=== PATIENT | male | born 1960 | race Caucasian/White ===

== ENCOUNTER 2016-08-13 09:26 | Outpatient (CLI) | payer OTHER ==
[~2016-08-13 09:26] MED LIST: ASPIRIN81 M1 PO; CYCLOBENZAPRINE10 M7 PO; LOPRESSOR50 MG PO; VASOTEC5 MG PO
== END 2016-08-13 20:53 | disposition home or self-care (01) ==
LOC: MLB 09:26
PROVIDERS: ATTEND Internal Medicine Geriatric Medicine
DX: I10 Essential (primary) hypertension (principal); I25.10 Atherosclerotic heart disease of native coronary artery without angina pectoris; E78.5 Hyperlipidemia, unspecified; I50.9 Heart failure, unspecified

== ENCOUNTER 2016-09-17 13:09 | Outpatient (CLI) | payer OTHER | END 2016-09-17 20:22 | disposition home or self-care (01) | LOC: MRD 13:09 | PROVIDERS: ATTEND Internal Medicine Geriatric Medicine | DX: M25.562 Pain in left knee (principal) ==

== ENCOUNTER 2017-02-03 09:30 | Outpatient (CLI) | payer OTHER ==
[~2017-02-03 09:30] MED LIST changes: -ASPIRIN81 M1 PO; -CYCLOBENZAPRINE10 M7 PO; -LOPRESSOR50 MG PO; +METO-50 PO; +VAS5 PO; -VASOTEC5 MG PO
[2017-02-03 10:03] LABS: BASOPHILS # (AUTO) 0.1 K/uL (0.00-0.22); BASOPHILS % (AUTO) 0.7 % (0.0-2.0); EOSINOPHILS # (AUTO) 0.1 K/uL (0-0.4); EOSINOPHILS % (AUTO) 1.6 % (0.0-4.0); HEMATOCRIT 43.5 % (36-52); HEMOGLOBIN 14.6 g/dL (12.0-18.0); LYMPHOCYTES # (AUTO) 1.8 K/uL (2.0-11.5); LYMPHOCYTES % (AUTO) 23.8 % (20.5-51.1); MEAN CORPUSCULAR HEMOGLOBIN 32 pg (27-31); MEAN CORPUSCULAR HGB CONC 34 g/dL (33-37); MEAN CORPUSCULAR VOLUME 96 fL (80-94); MONOCYTES # (AUTO) 0.2 K/uL (0.8-1.0); MONOCYTES % (AUTO) 3.2 % (1.7-9.3); NEUTROPHILS # (AUTO) 5.4 K/uL (1.8-7.7); NEUTROPHILS % (AUTO) 70.7 % (42.2-75.2); PLATELET COUNT (AUTO) 291 K/uL (140-450); RED BLOOD CELL COUNT(AUTO) 4.53 MIL/uL (4.20-6.10); RED CELL DISTRIBUTION WIDTH 11.4 % (11.6-13.7); WHITE BLOOD COUNT (AUTO) 7.6 K/uL (4.8-10.8)
[2017-02-03 10:23] LABS: ANION GAP 12.1 (8-16); CARBON DIOXIDE 29.2 mmol/L (21-32); CREATININE 1.1 mg/dL (0.7-1.3); POTASSIUM 4.3 mmol/L (3.5-5.1)
[2017-02-03 10:29] LABS: ALBUMIN 3.9 g/dL (3.4-5.0); CHOL/HDL RATIO 7.1 (1-4.5)
[2017-02-03 10:50] LABS: THYROID STIMULATING HORMONE 1.17 uIU/mL (0.34-3.74)
== END 2017-02-03 20:56 | disposition home or self-care (01) ==
LOC: MLB 09:30
PROVIDERS: ATTEND Internal Medicine Geriatric Medicine
DX: I11.9 Hypertensive heart disease without heart failure (principal); I25.10 Atherosclerotic heart disease of native coronary artery without angina pectoris; E55.9 Vitamin D deficiency, unspecified; R00.2 Palpitations
CPT/HCPCS: 36415; 80053; 82306; 83036; 84443; 85025

== ENCOUNTER 2017-02-24 13:32 | Outpatient (CLI) | payer OTHER | END 2017-02-24 20:38 | disposition home or self-care (01) | LOC: MCA 13:32 | DX: I25.10 Atherosclerotic heart disease of native coronary artery without angina pectoris (principal); I51.7 Cardiomegaly; R07.9 Chest pain, unspecified ==